=== PATIENT | female | born 1940 | race Caucasian/White ===

== ENCOUNTER 2018-07-29 22:10 | Observation (INO) | payer OTHER, MEDICARE ==
[2018-07-29] MEDS ORDERED: IBUPROFEN 600 MG TAB PO ONE ×2 (22:27→22:36)
[2018-07-29] MEDS ORDERED: ACETAMINOPHEN 500 MG TAB ONE (22:27)
[2018-07-29] MEDS ORDERED: NS 1,000 ML IV ONE ×2 (22:36→23:20)
[2018-07-29] MEDS ORDERED: ACETAMINOPHEN 500 MG TAB PO ONE (22:36)
--- NOTE | 2018-07-29 22:47 | EDPHY ---
H & P Stated Complaint: COUGH FEVER DIARRHEA AND NAUSEA Time Seen by Provider: 07/29/18 22:21 HPI/ROS: HPI The patient presents with cough, fever, chills, nausea, vomiting, diarrhea. Her symptoms began 3-4 days ago with cough which was productive of clear sputum. She describes this is severe and constant causing her chest to feel sore. She also has mild rhinorrhea. She today felt chills and has been checking her temperature which has been rising. She took ibuprofen at about 5: 00 p.m. With no improvement in her temperature so comes to the emergency department. She has had several episodes of nonbloody nonbilious emesis associated with watery diarrhea. She has not had abdominal pain.. REVIEW OF SYSTEMS 10 systems were reviewed and negative with the exception of the elements mentioned in the history of present illness. PMHx: Pre diabetes, hyperlipidemia, hypothyroidism, she did receive a flu vaccine this year Soc Hx: Here with her partner who is sick with similar symptoms PHYSICAL General Appearance: Alert, no distress Eyes: Pupils equal and round no pallor or injection ENT, Mouth: Mucous membranes moist, posterior pharynx is erythematous and slightly edematous with no exudate Respiratory: There are no retractions, lungs are clear to auscultation Cardiovascular: Tachycardic rate and regular rhythm Gastrointestinal: Abdomen is soft and non-tender, no masses, bowel sounds normal Neurological: A&O, moves all extremities Skin: Warm and dry, no rashes Musculoskeletal: Neck is supple non tender Extremities: symmetrical, full range of motion Psychiatric: Patient is oriented X 3, there is no agitation Source: Patient Exam Limitations: No limitations - Personal History Current Tetanus/Diphtheria Vaccine: Yes Current Tetanus Diphtheria and Acellular Pertussis (TDAP): Yes - Medical/Surgical History Hx Asthma: Yes Hx Chronic Respiratory Disease: No Hx Diabetes: Yes Hx Cardiac Disease: No Hx Renal Disease: No Hx Cirrhosis: No Hx Alcoholism: No Hx HIV/AIDS: No Hx Splenectomy or Spleen Trauma: No - Social History Smoking Status: Never smoked Constitutional: Initial Vital Signs Temperature (C) 39.4 C H 07/29/18 22:14 Heart Rate 108 H 07/29/18 22:14 Respiratory Rate 18 07/29/18 22:14 Blood Pressure 159/87 H 07/29/18 22:14 O2 Sat (%) 91 L 07/29/18 22:14 O2 Delivery Mode Room Air O2 (L/minute) 2 Allergies/Adverse Reactions: pollen extracts Allergy (Verified 07/30/18 00:14) Home Medications: Medication Instructions Recorded Levothyroxine [Synthroid 112 mcg 112 mcg PO DAILY06 07/29/18 (*)] Rosuvastatin Calcium [Crestor 10mg 10 mg PO DAILY 07/29/18 (RX)] Sitagliptin Phos/Metformin HCl 1 each PO 07/29/18 [Janumet Xr 100-1,000 mg Tablet] Medical Decision Making - Diagnostics Imaging Results: Imaging Impressions Chest X-Ray 07/29/18 22:39 Impression: Chronic features following a prior remote right upper lobectomy, similar to 07/31/2013, with no new focal infiltrate observed. Differential Diagnosis: 77-year-old relatively healthy female with pre diabetes and hyperlipidemia presents from home with 3-4 days of productive cough, now with fever, nausea, vomiting, diarrhea. Here, she is tachycardic, febrile, hypoxic. She is generally well-appearing, lungs sound clear, she is not in any respiratory distress. Labs were checked and demonstrated positivity for influenza a. She was given a dose of Tamiflu. Chest x-ray was relatively unremarkable. She was given IV fluids and antipyretics. She felt a bit better after these treatments, however continually remained hypoxic. She does not have any underlying lung disease though did have a lobectomy remotely. Her sats did not improve above 88%. Because of this, I will admit her to the hospital and I have discussed the case with the hospitalist second cook and baker Dr. Murray. - Data Points Laboratory Results: Laboratory Results 07/29/18 22:30 07/29/18 23:17 07/29/18 07/29/18 07/29/18 23:17 22:30 22:30 WBC RBC Hgb Hct MCV MCH MCHC RDW Plt Count MPV Neut % (Auto) Lymph % (Auto) Benton % (Auto) Eos % (Auto) Baso % (Auto) Nucleat RBC Rel Count Absolute Neuts (auto) Absolute Lymphs (auto) Absolute Monos (auto) Absolute Eos (auto) Absolute Basos (auto) Absolute Nucleated RBC Immature Gran % Immature Gran # RBC/WBC/PLT Morphology Platelet Estimate Turbidity REJ Sodium 135 mEq/L mEq/L REJ (135-145) Potassium 3.6 mEq/L mEq/L REJ (3.5-5.2) Chloride 107 mEq/L mEq/L REJ (97-110) Carbon Dioxide 22 mEq/l mEq/l REJ (22-31) Anion Gap 6 mEq/L mEq/L REJ (6-14) BUN 15 mg/dL mg/dL REJ (7-23) Creatinine 0.7 mg/dL mg/dL REJ (0.6-1.0) Estimated GFR > 60 REJ Glucose 124 mg/dL H mg/dL REJ (70-100) Calcium 7.4 mg/dL L mg/dL REJ (8.5-10.4) Specimen Hemolysis REJ Nasal Influenza A PCR FLU A DETECTED H (NEGATIVE) Nasal Influenza B PCR NEGATIVE FOR FLU B (NEGATIVE) RSV (PCR) NEGATIVE FOR RSV (NEGATIVE) 07/29/18 22:30 WBC 5.52 10^3/uL 10^3/uL (3.80-9.50) RBC 4.85 10^6/uL 10^6/uL (4.18-5.33) Hgb 14.0 g/dL g/dL (12.6-16.3) Hct 42.4 % % (38.0-47.0) MCV 87.4 fL fL (81.5-99.8) MCH 28.9 pg pg (27.9-34.1) MCHC 33.0 g/dL g/dL (32.4-36.7) RDW 13.5 % % (11.5-15.2) Plt Count 235 10^3/uL 10^3/uL (150-400) MPV 10.5 fL fL (8.7-11.7) Neut % (Auto) 83.3 % H % (39.3-74.2) Lymph % (Auto) 8.9 % L % (15.0-45.0) Benton % (Auto) 6.5 % % (4.5-13.0) Eos % (Auto) 0.7 % % (0.6-7.6) Baso % (Auto) 0.2 % L % (0.3-1.7) Nucleat RBC Rel Count 0.0 % % (0.0-0.2) Absolute Neuts (auto) 4.60 10^3/uL 10^3/uL (1.70-6.50) Absolute Lymphs (auto) 0.49 10^3/uL L 10^3/uL (1.00-3.00) Absolute Monos (auto) 0.36 10^3/uL 10^3/uL (0.30-0.80) Absolute Eos (auto) 0.04 10^3/uL 10^3/uL (0.03-0.40) Absolute Basos (auto) 0.01 10^3/uL L 10^3/uL (0.02-0.10) Absolute Nucleated RBC 0.00 10^3/uL 10^3/uL (0-0.01) Immature Gran % 0.4 % % (0.0-1.1) Immature Gran # 0.02 10^3/uL 10^3/uL (0.00-0.10) RBC/WBC/PLT Morphology TNP Platelet Estimate TNP Turbidity Sodium Potassium Chloride Carbon Dioxide Anion Gap BUN Creatinine Estimated GFR Glucose Calcium Specimen Hemolysis Nasal Influenza A PCR Nasal Influenza B PCR RSV (PCR) Medications Given: Albuterol (Proventil Neb) 3 ml IH Q2HRS PRN PRN Reason: Short of Breath/Dyspnea Stop: 01/26/19 00:44 Last Admin: 07/30/18 02:27 Dose: 3 ml Benzonatate (Tessalon Pearles) 100 mg PO TID PRN PRN Reason: Cough, Mild Stop: 01/26/19 00:47 Last Admin: 07/30/18 01:42 Dose: 100 mg Sodium Chloride (Ns) 1,000 mls @ 100 mls/hr IV CONT MORGAN Stop: 01/26/19 00:44 Last Admin: 07/30/18 01:45 Dose: 1,000 mls Zolpidem Tartrate (Ambien) 5 mg PO HS PRN PRN Reason: Sleep/Insomnia Stop: 01/26/19 01:51 Last Admin: 07/30/18 03:03 Dose: 5 mg Discontinued Medications Acetaminophen (Tylenol) 1,000 mg PO EDNOW ONE Stop: 07/29/18 22:37 Last Admin: 07/29/18 22:41 Dose: 1,000 mg Sodium Chloride (Ns) 1,000 mls @ 0 mls/hr IV ONCE ONE; Wide Open PRN Reason: Protocol Stop: 07/29/18 22:37 Last Admin: 07/29/18 22:41 Dose: 1,000 mls Sodium Chloride (Ns) 1,000 mls @ 0 mls/hr IV ONCE ONE; Wide Open PRN Reason: Protocol Stop: 07/29/18 23:21 Last Admin: 07/29/18 23:23 Dose: 1,000 mls Ibuprofen (Motrin) 600 mg PO EDNOW ONE Stop: 07/29/18 22:37 Last Admin: 07/29/18 22:41 Dose: 600 mg Ondansetron HCl (Zofran) 4 mg IVP EDNOW ONE Stop: 07/30/18 00:07 Last Admin: 07/30/18 00:15 Dose: 4 mg Oseltamivir Phosphate (Tamiflu) 75 mg PO EDNOW ONE Stop: 07/30/18 00:17 Last Admin: 07/30/18 00:33 Dose: 75 mg Departure - Departure Disposition: [facility] Clinical Impression: Influenza A, Hypoxia Condition: Fair
[2018-07-29 22:50] LABS: PLATELET COUNT 235 10^3/uL (150-400)
[2018-07-30] MEDS ORDERED: ONDANSETRON 4 MG/2 ML VIAL IVP ONE (00:06)
[2018-07-30] MEDS ORDERED: ONDANSETRON 4 MG/2 ML VIAL ONE (00:08)
[2018-07-30] MEDS ORDERED: OSELTAMIVIR PHOSPHATE 75 MG CAP PO ONE (00:16)
[2018-07-30] MEDS ORDERED: ONDANSETRON 4 MG/2 ML VIAL IVP PRN (00:45)
[2018-07-30] MEDS ORDERED: NS 1,000 ML IV SCH (00:45)
[2018-07-30] MEDS ORDERED: ONDANSETRON DISINTEGRATING 4 MG TAB PO PRN (00:45)
[2018-07-30] MEDS ORDERED: ALBUTEROL 3 ML DEYVIAL IH PRN (00:45)
[2018-07-30] MEDS ORDERED: ACETAMINOPHEN 325 MG TAB PO PRN (00:45)
[2018-07-30] MEDS ORDERED: BENZONATATE 100 MG CAP PO PRN (00:48)
[2018-07-30] MEDS ORDERED: GUAIFENESIN/DM 10 ML UDCUP PO PRN (00:48)
[2018-07-30] MEDS ORDERED: ZOLPIDEM TARTRATE 5 MG TAB PO PRN (01:52)
--- NOTE | 2018-07-30 02:13 | PDGENHP ---
History and Physical - Chief Complaint Cough, fever, nausea, vomiting, diarrhea - History of Present Illness Source-patient provides history appears reliable. EMR was reviewed and case discussed with ED provider. HPI-is a very pleasant 77-year-old female with past medical history significant for DM 2 dqe-nmhfkil-wezkkuost, HTN, HDL, hypothyroidism, exercise-induced asthma, remote history of lung cancer status post lobectomy who presents emergency department today with complaints of 3-4 day history of cough productive of clear sputum, rhinorrhea and 1 day history of fevers, chills, nausea, diarrhea. Patient denies any melena or hematochezia. She denies abdominal pain or cramping. She reports that she has a sick contact exposures her with similar symptoms however he was not diagnosed with the flu although he saw his primary care provider for 2 days prior. Patient reports that she did receive the flu shot this year. Patient with known history of exercise-induced asthma. She denies any current wheezing be possibly mild shortness of air. In the ED patient was noted to be 80% on room air. She denies any chest pain or palpitations. History Information - Allergies/Home Medication List Allergies/Adverse Reactions: pollen extracts Allergy (Verified 07/30/18 00:14) Home Medications: Levothyroxine [Synthroid 112 mcg (*)] 112 mcg PO DAILY06 07/29/18 [Last Taken Unknown] Rosuvastatin Calcium [Crestor 10mg (RX)] 10 mg PO DAILY 07/29/18 [Last Taken Unknown] Sitagliptin Phos/Metformin HCl [Janumet Xr 100-1,000 mg Tablet] 1 each PO [Last Taken Unknown] I have personally reviewed and updated: family history, medical history, social history, surgical history - Past Medical History Additional medical history: HTN, HLD, hypothyroidism, DM 2 [id number]-vgcjnruyl , exercise-induced asthma, history remote of lung cancer status post resection. - Surgical History Additional surgical history: Lung resection, cholecystectomy, appendectomy, cataract extraction with lens placement bilaterally, tonsillectomy adenoidectomy. - Family History Additional family history: Daughter with history of breast cancer. Mother with history of asthma. - Social History Smoking Status: Never smoked Alcohol Use: Rarely Drug Use: None Additional social history: Patient is lives with her . They just recently relocated from [facility] to be close to their daughter who was recently diagnosed with breast cancer. Cor status-full. Review of Systems Review of Systems: ROS: 10pt was reviewed & negative except for what was stated in HPI & below Constitutional: Reports: chills, fever, malaise, recent illness, weakness ( Generalized) EENMT: Reports: nose congestion. Denies: blurred vision, sore throat Cardiac: Reports: no symptoms Respiratory: Reports: cough. Denies: orthopnea, shortness of breath, wheezing Gastrointestinal: Reports: vomitting, diarrhea, nausea. Denies: black stools, rectal bleeding, abdominal pain Genitourinary: Reports: no symptoms Muscolosketal: Reports: no symptoms Skin: Reports: no symptoms Neurological: Reports: no symptoms Hematologic/Lymphatic: Reports: no symptoms Physical Exam Physical Exam: Selected Entries 07/29/18 22:14 Blood Pressure Automatic Method Heart Rate 108 H Respiratory 18 Rate O2 Sat (%) 91 L Temperature (C) 39.4 C H Blood Pressure 159/87 H Mean Arterial 111 H Pressure (MAP) O2 Delivery Room Air Mode Temperature Oral Source Temp Pulse Resp BP Pulse Ox 37.1 C 86 18 138/74 H 98 07/30/18 01:35 07/30/18 01:35 07/30/18 01:35 07/30/18 01:35 07/30/18 01:35 O2 (L/minute) 2 Constitutional: no apparent distress, other (NAD. Pleasant adult female is resting quietly in bed. Appears fatigued but nontoxic.), No chronically ill appearing Eyes: PERRL (Lens reflex appreciated bilaterally and symmetric. Decreased reactivity to light bilaterally) Ears, Nose, Mouth, Throat: moist mucous membranes, other (No nasal discharge.), No poor dentition Cardiovascular: regular rate and rhythym, no murmur, rub, or gallop, pulses symmetric bilaterally, No edema Peripheral Pulses: 1+: dorsalis-pedis (R), dorsalis-pedis (L) Respiratory: no respiratory distress, no rales or rhonchi, clear to auscultation , No expiratory wheeze, No inspiratory crackles Gastrointestinal: soft, non-tender abdomen, no palpable masses, other ( Hypoactive bowel sounds.), No normoactive bowel sounds, No distension Genitourinary: no bladder tenderness, No torres in urethra Skin: warm, normal color, no rashes or abrasions Musculoskeletal: other (Patient moves all extremities and sits up independently. Strength grossly normal.) Neurologic: AAOx3, sensation intact bilaterally, other (Grossly nonfocal exam.) , No weakness, No numbness, No facial droop Psychiatric: interacting appropriately, not encephalopathic, thought process linear, anxious, No encephalopathic, No suicidal ideation, No agitated Lab Data & Imaging Review 07/29/18 22:30 07/29/18 23:17 WBC 5.52 10^3/uL (3.80-9.50) 07/29/18 22: RBC 4.85 10^6/uL (4.18-5.33) 07/29/18: Hgb 14.0 g/dL (12.6-16.3) 07/29/18: Hct 42.4 % (38.0-47.0) 07/29/18 22: MCV 87.4 fL (81.5-99.8) 07/29/18: MCH 28.9 pg (27.9-34.1) 07/29/18 22: MCHC 33.0 g/dL (32.4-36.7) 07/29/18: RDW 13.5 % (11.5-15.2) 07/29/18: Plt Count 235 10^3/uL (150-400) 07/29/18: MPV 10.5 fL (8.7-11.7) 07/29/18: Neut % (Auto) 83.3 % (39.3-74.2) H 07/29/18: Lymph % (Auto) 8.9 % (15.0-45.0) L 07/29/18: Bladen % (Auto) 6.5 % (4.5-13.0) 07/29/18: Eos % (Auto) 0.7 % (0.6-7.6) 07/29/18: Baso % (Auto) 0.2 % (0.3-1.7) L 07/29/18: Nucleat RBC Rel Count 0.0 % (0.0-0.2) 03/16/19 22:30 Absolute Neuts (auto) 4.60 10^3/uL (1.70-6.50) 07/29/18 22:30 Absolute Lymphs (auto) 0.49 10^3/uL (1.00-3.00) L 07/29/18 22:30 Absolute Monos (auto) 0.36 10^3/uL (0.30-0.80) 07/29/18 22:30 Absolute Eos (auto) 0.04 10^3/uL (0.03-0.40) 07/29/18 22:30 Absolute Basos (auto) 0.01 10^3/uL (0.02-0.10) L 07/29/18 22:30 Absolute Nucleated RBC 0.00 10^3/uL (0-0.01) 07/29/18 22:30 Immature Gran % 0.4 % (0.0-1.1) 07/29/18 22:30 Immature Gran # 0.02 10^3/uL (0.00-0.10) 07/29/18 22:30 RBC/WBC/PLT Morphology TNP 07/29/18 22:30 Platelet Estimate TNP 07/29/18 22:30 Turbidity REJ 07/29/18 22:30 Sodium 135 mEq/L (135-145) 07/29/18 23:17 Potassium 3.6 mEq/L (3.5-5.2) 07/29/18 23:17 Chloride 107 mEq/L (97-110) 07/29/18 23:17 Carbon Dioxide 22 mEq/l (22-31) 07/29/18 23:17 Anion Gap 6 mEq/L (6-14) 07/29/18 23:17 BUN 15 mg/dL (7-23) 07/29/18 23:17 Creatinine 0.7 mg/dL (0.6-1.0) 07/29/18 23:17 Estimated GFR > 60 07/29/18 23:17 Glucose 124 mg/dL (70-100) H 07/29/18 23:17 Calcium 7.4 mg/dL (8.5-10.4) L 07/29/18 23:17 Specimen Hemolysis REJ 07/29/18 22:30 Nasal Influenza A PCR FLU A DETECTED (NEGATIVE) H 07/29/18 22:30 Nasal Influenza B PCR NEGATIVE FOR FLU B (NEGATIVE) 07/29/18 22:30 RSV (PCR) NEGATIVE FOR RSV (NEGATIVE) 07/29/18 22:30 Imaging Review: Chest, PA and Lateral Views, at 10:56 PM Clinical History: 77-year-old female in the ED with difficulty breathing and a fever for 4 days, and a prior history of a lobectomy for lung cancer. Comparison Study: Chest, dated 07/31/2013 Findings: Oxygen tubing is present. Again noted are postoperative changes following a right upper lobectomy with some right paramediastinal fibrosis, and a suture line which extends to the right hilum. There is resultant chronic volume loss, with mild elevation of the lateral right hemidiaphragm. The mediastinal silhouette is stable. The heart size is normal. The left lung is well -expanded, and there is no new focal infiltrate, pleural effusion, peripheral interstitial edema, or pneumothorax. The osseous structures are notable for prior partial resection of the right sixth posterior rib. There are degenerative features of the spine. There are surgical clips in the medial right upper quadrant of the abdomen, consistent with a prior cholecystectomy. Impression: Chronic features following a prior remote right upper lobectomy, similar to 07/31/2013, with no new focal infiltrate observed. Dictated By: Alonzo Small MD Visualized and Interpreted Chest x-ray results: Yes Chest X-Ray results: no infiltrate, other (Chronic right changes.) Assessment & Plan Assessment: This a very pleasant 77-year-old female with past medical history significant for DM 2 cyy-uclrqqi-cfrigigrw, HTN, HDL, hypothyroidism, exercise-induced asthma, remote history of lung cancer status post lobectomy who presents emergency department today with complaints of 3-4 day history of cough , fevers , nausea vomiting diarrhea. Positive sick contacts. #Influenza A-patient reports she did receive vaccination for this season. She has had a positive sick contact of her who likely also has influenza a however patient reports that he appears to be getting better and as such no indication for spouse receiving Tamiflu at this point. Will continue Tamiflu in -patient however . #Hypoxia - supplemental oxygen overnight. Incentive spirometer. Mobilize as tolerated. Recheck a room air challenge in the morning as well as exertional pulse ox. If no improvement patient may require some home oxygen supplementation. Chronic medical issues #Asthma - patient without exacerbation at this time. She is a little bit diminished at the bases. Albuterol will be available p.r.n.. #Dm 2 [id number]-xclxtwzwj - resume patient's home medication when med rec available. #HLD - resume Crestor in the morning #HTN - patient cannot recall the name of her antihypertensive at this time of her blood pressures are adequate and do not require treatment. #Hypothyroidism - resume levothyroxine this morning. FEN -IV fluid supplementation overnight. Advance diet as tolerated. Electrolytes are adequate will monitor in the morning. His calcium is slightly decreased but suspect that patient's albumin is also low in setting of her acute illness will check these in the morning. PPX-SCDs. Anticoagulation in the morning if patient should stay additional day. Cor status-full. Disposition-patient admitted observation status on the [facility] floor for continued monitoring of her oxygen continue treatment of her flu see if she has any improvement tomorrow. Anticipate less than 2 midnight stay.
[2018-07-30] MEDS ORDERED: LEVOTHYROXINE 112 MCG TAB PO SCH (06:00)
[2018-07-30 07:34] VITALS: BP 152/79
[2018-07-30] MEDS ORDERED: OSELTAMIVIR PHOSPHATE 75 MG CAP PO SCH (08:00)
[2018-07-30] MEDS: ENOXAPARIN 40 MG/0.4 ML SYR SC SCH ×3 (08:28→08:30)
[2018-07-30] MEDS ORDERED: SITAGLIPTIN PHOS PO SCH (09:15)
[2018-07-30] MEDS ORDERED: METFORMIN HCL PO SCH (09:15)
[2018-07-30] MEDS ORDERED: LOSARTAN POTASSIUM 50 MG TAB PO SCH (09:15)
--- NOTE | 2018-07-30 09:33 | PDHOMEO2F ---
Home Oxygen Face to Face Home Orders: I certify that a physician or a nurse practitioner or physician's speech assistant has had a [id number] encounter with this patient on the date of this order due to the diagnosis listed, which relates to the primary reason the patient requires home oxygen. Alternative treatments have been tried, or considered, and deemed ineffective. It is anticipated that supplemental oxygen will result in improvement with treatment. Home oxygen qualifying diagnosis: asthma SpO2 on room air (%): 85 Frequency of home oxygen needed: continuous Home oxygen liters per minute: 2 Home oxygen delivery device: nasal cannula Concentrator: Yes E-tanks for mobility and back up: Yes If ordering portable O2, is the patient mobile in the home?: Yes I certify that, based on these findings, the home oxygen is medically necessary for this patient for the following length of time. Length of time home oxygen needed: 1 month
--- NOTE | 2018-07-30 11:53 | ASDISCHSUM ---
Discharge Information Plan Status:Home with No Needs Medically Cleared to Leave:07/30/2018 Discharge Date:07/30/2018 11:30 AM CM D/C Disposition:Home, Routine, Self-Care ADT D/C Disposition:Home, Routine, Self-Care Projected Discharge Date:07/30/2018 11:30 AM Transportation at D/C:Family Discharge Delay Reason: Follow-Up Date:07/30/2018 11:30 AM Discharge Slot: Final Diagnosis: Placement Information Patient Contact Information Contact Name:ROSIOTONIEL Relationship: Address:[address] Work Phone: City:[place] Phone: State/Zip Code:[place] [address] Email: Financial Information Financial Class:Medicare Primary Plan Desc:MEDICARE OUTPATIENT Primary Plan Number:[id number] Secondary Plan Desc:REID/DANA SUPPLEMENT Secondary Plan Number:[id number] Assessment Information LACE LACE Length of stay for Answers: Less than 1 day current admission Acuity / Level of Answers: No Care: Did the patient have an inpatient admission? Comorbidities - select Answers: Any tumor (including all that apply lymphoma or leukemia) Diabetes (uncontrolled or controlled) Other Notes: HTN # of Emergency department Answers: 1-2 visits in the last 6 months Score: 5 Date Signed: 07/30/2018 11:51 AM Electronically Signed By:AMEE Bailey Case Management Discharge Plan Note Case Management Discharge Discharge Order Complete? Answers: Yes Patient to Obtain Answers: Independently Medications Transportation Arranged Answers: Family/Friends Discharge Comments Notes: Pt was admitted with the flu. She discharged home today with family and no CM needs. Date Signed: 07/30/2018 11:52 AM Electronically Signed By:AMEE Bailey Intervention Information
--- NOTE | 2018-07-30 13:29 | GDS ---
[f rep st] DISCHARGE SUMMARY DISCHARGE DIAGNOSES: 1. Influenza A. 2. Hypoxemia. 3. History of asthma. 4. History of hypertension. PHYSICAL EXAM: GENERAL: The patient is alert. VITAL SIGNS: Afebrile at 36.6, pulse is 82, respira tory rate is 18, blood pressure is 152/79. She is saturating greater than 90% on room air. I have seen and evaluated the patient on the day of discharge. HOSPITAL COURSE: The patient is a 77-year-old female who presented to the emergency room with compla ints of cough with fever and vomiting. During this hospital course, she was evaluated and diagnosed with influenza A. she was treated with Tamiflu as well as supportive management. Her symptoms have significantly improved. Her hypoxemia has resolved, and she feels ready to be discharged home. She has no further signs of complications, and we will continue her previously prescribed home medication s. DISCHARGE MEDICATIONS: Prescriptions for Tamiflu as well as Tessalon Perles have been provided for t he patient at the time of disposition, and I have not discontinued any of her previously prescribed h ome medications to the best of my knowledge. FOLLOWUP: Will be with Dr. Flakita Simmons, her primary care physician. /[id number]/MODL
[2018-07-30] MEDS ORDERED: ROSUVASTATIN CALCIUM 10 MG TAB PO SCH (21:00)
[2018-07-31] MEDS ORDERED: LEVOTHYROXINE 75 MCG TAB PO SCH (06:00)
== END 2018-07-30 11:30 | disposition home or self-care (01) ==
LOC: F3E 07-30 00:50
PROVIDERS: ADMIT Family Medicine; ATTEND Family Medicine
DX: J10.1 Influenza due to other identified influenza virus with other respiratory manifestations (principal); R09.02 Hypoxemia; E11.9 Type 2 diabetes mellitus without complications; E78.5 Hyperlipidemia, unspecified; E03.9 Hypothyroidism, unspecified; Z85.118 Personal history of other malignant neoplasm of bronchus and lung; J45.990 Exercise induced bronchospasm; I10 Essential (primary) hypertension
CPT/HCPCS: 71046; G0378; J2405; J7613; 96374; J1650

== ENCOUNTER → 2018-10-20 | Outpatient (CLI) | payer OTHER, MEDICARE | LOC: FIMAGING 19:26 ==